=== PATIENT | male | born 1960 | race Caucasian/White ===

== ENCOUNTER 2016-09-11 11:34 | Day surgery (SDC) | payer MEDICARE, OTHER ==
--- NOTE | ~2016-09-11 | EGD ---
EGD REPORT [facility] [address] [address] NAME: JOSE EDUARDO SLOAN : [birth year] STATUS : REG [facility] [place] PAT#: [id number] AGE: 55 ADM/REG DATE : 09/11/16 MR#: [id number] REPORT SERV DATE: 09/11/16 DICTATED BY: CHERYL MISHRA DATE: 09/11/16 REPORT STATUS : Draft [facility] DATE: 09/11/16 Endoscopy Center Patient Name: Jose Eduardo Sloan Date of : 1960 Attending MD: CHERYL MISHRA MD Procedure Date No Time: 09/11/2016 Procedure: Upper GI endoscopy Indications: Melena, Diarrhea Referring MD: DANG ROSAS Medicines: Monitored Anesthesia Care Complications: No immediate complications. Procedure: Pre-Anesthesia Assessment: - ASA Grade Assessment: III - A patient with severe systemic disease. After obtaining informed consent, the endoscope was passed under direct vision. Throughout the procedure, the patient's blood pressure, pulse, and oxygen saturations were monitored continuously. The GIF [id number] was introduced through the mouth, and advanced to the second part of duodenum. The upper GI endoscopy was accomplished without difficulty. The patient tolerated the procedure well. Findings: No gross lesions were noted in the entire esophagus. A small hiatus hernia was present. The cardia and gastric fundus were normal on retroflexion. The duodenal bulb and 2nd part of the duodenum were normal. Biopsies were taken with a cold forceps for histology. Impression: - No gross lesions in esophagus. - Hiatus hernia. - Normal duodenal bulb and 2nd part of the duodenum. Biopsied. Recommendation: - Await pathology results. Procedure Code(s): --- Professional --- 78418, Esophagogastroduodenoscopy, flexible, transoral; with biopsy, single or multiple Diagnosis Code(s): --- Professional --- K44.9, Diaphragmatic hernia without obstruction or gangrene K92.1, Melena EGD REPORT [facility] [address] [place] [address] NAME: JOSE EDUARDO SLOAN : [birth year] STATUS : REG [facility] [place] PAT#: [id number] AGE: 55 ADM/REG DATE : 09/11/16 MR#: [id number] REPORT SERV DATE: 09/11/16 DICTATED BY: CHERYL MISHRA DATE: 09/11/16 REPORT STATUS : Draft TRANSCRIBED BY: [employer] DATE: 09/11/16 R19.7, Diarrhea, unspecified CPT copyright 2013 [employer]. All rights reserved. The codes documented in this report are preliminary and upon auto rental clerk review may be revised to meet current compliance requirements. CHERYL MISHRA MD 09/11/2016 1:44 PM This report has been signed electronically. Number of Addenda: 0 Note Initiated On: 09/11/2016 1:25 PM Scope Withdrawal Time 0 hours 0 minutes 0 seconds [address] [place] [address]
--- NOTE | ~2016-09-11 | EGD ---
EGD REPORT [facility] [address] [address] NAME: ALMA ROSA SLOAN : 60 STATUS : REG [facility] [place] PAT#: [id number] AGE: 55 ADM/REG DATE : 09/11/16 MR#: [id number] REPORT SERV DATE: 09/11/16 DICTATED BY: CHERYL MISHRA DATE: 09/11/16 REPORT STATUS : Draft TRANSCRIBED BY: [employer] DATE: 09/11/16 Endoscopy Center Patient Name: Alma Rosa Sloan Date of : 1960 Attending MD: CHERYL MISHRA MD Procedure Date No Time: 09/11/2016 Procedure: Colonoscopy Indications: Clinically significant diarrhea of unexplained origin, Melena Referring MD: DANG ROSAS Medicines: Monitored Anesthesia Care Complications: No immediate complications. Procedure: Pre-Anesthesia Assessment: - ASA Grade Assessment: III - A patient with severe systemic disease. After I obtained informed consent, the scope was passed under direct vision. Throughout the procedure, the patient's blood pressure, pulse, and oxygen saturations were monitored continuously. The CF [id number] was introduced through the anus and advanced to the ileocolonic anastomosis. The colonoscopy was performed without difficulty. The patient tolerated the procedure well. The quality of the bowel preparation was good. Findings: The digital rectal exam was normal. Pertinent negatives include no palpable rectal lesions. A sessile polyp was found in the transverse colon. The polyp was 11 mm in size. The polyp was removed with a hot snare. Resection and retrieval were complete. The sigmoid colon and transverse colon appeared normal. Biopsies were taken with a cold forceps for evaluation of microscopic colitis. A sessile polyp was found in the transverse colon. The polyp was 6 mm in size. The polyp was removed with a cold biopsy forceps. Resection and retrieval were complete. A sessile polyp was found in the descending colon. The polyp was 12 mm in size. The polyp was removed with a cold snare in piecemeal fashion. Resection and retrieval were complete. Hemorrhoids were found during retroflexion and were moderate. Impression: - One 11 mm polyp in the transverse colon. Resected and retrieved. - The sigmoid colon and transverse colon are normal. Biopsied. - One 6 mm polyp in the transverse colon. Resected and EGD REPORT [address] [address] NAME: ALMA ROSA SLOAN : 60 STATUS : REG [facility] [place] PAT#: [id number] AGE: 55 ADM/REG DATE : 09/11/16 MR#: [id number] REPORT SERV DATE: 09/11/16 DICTATED BY: CHERYL MISHRA DATE: 09/11/16 REPORT STATUS : Draft TRANSCRIBED BY: [employer] DATE: 09/11/16 retrieved. - One 12 mm polyp in the descending colon. Resected and retrieved. - Hemorrhoids. Recommendation: - Patient has a contact number available for emergencies. The signs and symptoms of potential delayed complications were discussed with the patient. Return to normal activities tomorrow. Written discharge instructions were provided to the patient. - Regular diet. - Continue present medications. - Await pathology results. - Repeat colonoscopy in 3 years for surveillance. - Return to GI clinic in 4 weeks. Procedure Code(s): --- Professional --- 08842, Colonoscopy, flexible, proximal to splenic flexure; with removal of tumor(s), polyp(s), or other lesion(s) by snare technique 63796, 59, Colonoscopy, flexible, proximal to splenic flexure; with biopsy, single or multiple Diagnosis Code(s): --- Professional --- D12.4, Benign neoplasm of descending colon D12.3, Benign neoplasm of transverse colon K64.9, Unspecified hemorrhoids R19.7, Diarrhea, unspecified K92.1, Melena CPT copyright 2013 [employer]. All rights reserved. The codes documented in this report are preliminary and upon broomcorn seeder review may be revised to meet current compliance requirements. CHERYL MISHRA MD 09/11/2016 2:19 PM This report has been signed electronically. Number of Addenda: 0 Note Initiated On: 09/11/2016 1:22 PM Scope Withdrawal Time 0 hours 16 minutes 4 seconds [address] [place] [id number]
[~2016-09-11 11:34] MED LIST: CYANO1000T PO; FOLIC PO; IBU-200200 MG PO; IRON325 MG PO; KCL20UDL PO; KDUR20 PO; LISINOPRIL40 MG PO; LORT7 PO; MAGOX4 PO; MULTI-VIT HP PO; NEUR600 PO; OTC IRON PO; P10 PO; PEP20 PO; POTASSIUM GLUCO99 MG PO; PRILO PO; PRILOSEC40 MG PO; PROTONIX PO; RELA5 PO; RESCUE INHALER; SPIRO50 PO; TAGAMET OR; THERA-M PO; TRAZ100 PO; VIST25 PO; VITAMIN D31000 UNIT PO; WELLSR150 PO; ZESTORETIC PO
== END 2016-09-11 23:59 | disposition home or self-care (01) ==
LOC: DMU 11:34
PROVIDERS: Internal Medicine Gastroenterology
PROC: 0DB98ZX Excision of Duodenum, Via Natural or Artificial Opening Endoscopic, Diagnostic (ICD-10-PCS; 2016-09-11)
PROC: 0DBL8ZZ Excision of Transverse Colon, Via Natural or Artificial Opening Endoscopic (ICD-10-PCS; principal; 2016-09-11 13:00)
PROC: 0DBM8ZZ Excision of Descending Colon, Via Natural or Artificial Opening Endoscopic (ICD-10-PCS; 2016-09-11 13:00)
PROC: 0DBN8ZZ Excision of Sigmoid Colon, Via Natural or Artificial Opening Endoscopic (ICD-10-PCS; 2016-09-11 13:00)
DX: D12.3 Benign neoplasm of transverse colon (principal); D12.4 Benign neoplasm of descending colon; K64.9 Unspecified hemorrhoids; K44.9 Diaphragmatic hernia without obstruction or gangrene; I10 Essential (primary) hypertension; J44.9 Chronic obstructive pulmonary disease, unspecified; G47.33 Obstructive sleep apnea (adult) (pediatric); F17.210 Nicotine dependence, cigarettes, uncomplicated; Z79.899 Other long term (current) drug therapy
CPT/HCPCS: 88305